=== PATIENT | male | born 2000 | race Two or more races ===

== ENCOUNTER 2024-08-20 14:18 | Emergency (ER) | payer MEDICAID, OTHER ==
[~2024-08-20] VITALS: Ht 182.9 cm; Wt 201.8 kg
--- NOTE | 2024-08-20 15:32 | DVH ---
Bilateral lower extremity venous duplex Clinical History: DVT Comparison: None Technique: Duplex Doppler evaluation of the deep venous systems of both lower extremities from the common femora l veins to the popliteal veins including color Doppler and spectral/pulsed waveform analysis was perf ormed. Findings: RIGHT SIDE: The common femoral vein demonstrates appropriate compressibility and waveform variability. There is compressibility/patency of the great saphenous vein at the proximal thigh. The femoral vein demonstrates appropriate compressibility and waveform variability. The deep femoral vein demonstrates appropriate compressibility and waveform variability. The popliteal vein demonstrates appropriate compressibility and waveform variability. There is normal compressibility at the tibioperoneal trunk. LEFT SIDE: The common femoral vein demonstrates appropriate compressibility and waveform variability. There is compressibility/patency of the great saphenous vein at the proximal thigh. The femoral vein demonstrates appropriate compressibility and waveform variability. The deep femoral vein demonstrates appropriate compressibility and waveform variability. The popliteal vein demonstrates appropriate compressibility and waveform variability. There is normal compressibility at the tibioperoneal trunk. Prominent left groin lymph node measuring 1.3 cm in short axis. Impression: 1. No right or left femoropopliteal venous thrombosis. 2. Left inguinal lymphadenopathy measuring up to 1.3 cm in short axis. HS:Y
[2024-08-20 15:43] VITALS: BP 159/111; PULSE 108; RESP 19; TEMP 98; O2SAT 98
[2024-08-20 15:56] LABS: Basophils # (auto) 0 10 ^3/uL (0-0.2); Basophils % (auto) 0.3 % (0.0-2.0); Eosinophils # (auto) 0.1 10 ^3/uL (0-0.8); Eosinophils % (auto) 1.8 % (0.0-7.0); Hematocrit 38.5 % (41.0-53.0); Hemoglobin 12.4 g/dL (13.5-17.5); Lymphocytes # (auto) 1.6 10 ^3/uL (0.4-5.4); Lymphocytes % (auto) 21.2 % (10.0-50.0); Mean Corpuscular Hemoglobin 28.8 pg (28.0-32.0); Mean Corpuscular Hgb Conc. 32.2 g/dL (32.0-36.0); Mean Corpuscular Volume 89.6 fL (80.0-100.0); Monocytes # (auto) 0.8 10 ^3/uL (0-1.3); Monocytes % (auto) 10.6 % (0.0-12.0); Neutrophils # (auto) 4.9 10 ^3/uL (1.6-8.6); Neutrophils % (auto) 66.1 % (37.0-80.0); Nucleated Red Blood Cells % 0.2 %; Platelet Count (auto) 290 10^3/uL (140-450); Red Blood Cells 4.29 10^6/uL (4.5-5.90); Red Cell Distribution Width 15.3 % (11.8-14.3); White Blood Cell 7.4 10^3/uL (4.4-10.8)
[2024-08-20 16:03] LABS: Urine Bacteria None Seen /hpf (None Seen)
[2024-08-20 16:03] LABS: Chloride 105 mmol/L (98-107); Potassium 4.3 mmol/L (3.5-5.1); Sodium 137 mmol/L (136-145)
[2024-08-20 16:04] LABS: Anion Gap 7 (5-15); Calcium 9.8 mg/dL (8.7-10.4); Carbon Dioxide 25 mmol/L (20-31)
--- NOTE | 2024-08-20 16:06 | DVH ---
XY CHEST TWO VIEWS ROUTINE CLINICAL HISTORY: R/o serious pathology COMPARISON: None TECHNIQUE: Frontal and lateral view of the chest was obtained FINDINGS: Lines and Tubes: None Lungs: No focal consolidation. Pleura: No effusion. No pneumothorax. Cardiomediastinal contours: Unremarkable Bones: No acute osseous abnormality. IMPRESSION: 1. No radiographic evidence of acute cardiopulmonary disease. HS:Y
[2024-08-20 16:09] LABS: BUN/Creatinine Ratio 8.6 (10.0-20.0); Blood Urea Nitrogen 8 mg/dL (9-23); Glucose 108 mg/dL (74-106)
[2024-08-20 16:26] LABS: Urine Blood Negative /uL (Negative); Urine Clarity Clear (Clear); Urine Color Yellow (Yellow); Urine Mucus FEW (None Seen); Urine Protein, UAD TRACE (Negative); Urine Specific Gravity 1.028 (1.001-1.035); Urine Urobilinogen Normal (Negative); Urine WBC 4 /hpf (0 - 3); Urine pH 5.5 (5.0-9.0)
--- NOTE | 2024-08-20 16:47 | ED.PDOC ---
Musculoskeletal HPI Comments Portions of this chart may have been created with an modal fluency direct voice recognition software. Occasional wrong-word or "sound-alike" substitutions may have occurred due to the inherent limitations of voice recognition software. Please read the chart carefully and recognize, using context, where these substitutions have occurred. This is a pleasant 24-year-old gentleman that presents with a chief complaint of left lower swelling. Reports he was sent from his PCP to rule out DVT. The ambulate without assistive devices. Denies fevers chills nausea vomiting diarrhea denies chest pain shortness of breath Wells score : 2+ Chief Complaint: Lower Extremity Time Seen by MD: 14:43 Primary Care Provider: NONE Reviewed Notes: Nurses Notes, Medications, Allergies Allergies: Coded Allergies: NO KNOWN ALLERGIES (Unverified , 08/20/24) Information Source: Patient Mode of Arrival: Ambulatory Past Medical History PAST MEDICAL HISTORY: Denies Surgical History: Denies all surgeries Family History Family History: Reviewed,noncontributory to illness Social History Smoker: Non-Smoker Alcohol: Denies ETOH Use Drugs: Denies Drug Use All Other Systems: Reviewed and Negative (Per HPI) Physical Exam General Appearance: No Apparent Distress, Normal HEENT: Head (Normocephalic atraumatic), Normal ENT Inspection, Pharynx Normal, TMs Normal Neck: Full Range of Motion, Non-Tender, Normal, Normal Inspection Respiratory: Chest Non-Tender, Lungs Clear, No Accessory Muscle Use, No Respiratory Distress, Normal Breath Sounds Cardiovascular: No Edema, No JVD, No Murmur, No Gallop, Normal Peripheral Pulses, Regular Rate/Rhythm Breast Exam: Deferred Gastrointestinal: No Organomegaly, Non Tender, No Pulsatile Mass, Normal Bowel Sounds, Soft Genitalia: Deferred Pelvic: Deferred Rectal: Deferred Extremities: No calf tenderness, Normal capillary refill, Normal inspection, Normal range of motion, Non-tender, No pedal edema Musculoskeletal : Location: Left Extremity Location: Leg (Localized swelling to the calf. No erythema, no warmth to touch, no pain with plantar flexion dorsiflexion. Dorsalis pedis 2+. Cap refill less than 3 seconds) Apperance: Normal Neurologic: Alert, No Motor Deficits, Normal Affect, Normal Mood, No Sensory Deficits Cerebellar Function: Normal Reflexes: Normal Skin: Dry, Normal Color, Warm Lymphatic: No Adenopathy Was a procedure done? Was a procedure done?: No Differential Diagnosis EXT Differential Diagnosis: Fracture, Sprain, Other X-Ray, Labs, Meds, VS Vital Signs Date Time Temp Pulse Resp B/P (MAP) Pulse Ox O2 Delivery O2 Flow Rate FiO2 08/20/24 15:43 98.0 108 19 159/111 (127) 98 98.0 08/20/24 15:41 73 16 96 Room Air 08/20/24 14:42 98.0 106 19 159/111 (127) 98 Lab Test 08/20/24 15:39 08/20/24 14:49 Range/Units White Blood Count 7.4 4.4-10.8 10^3/uL Red Blood Count 4.29 L 4.5-5.90 10^6/uL Hemoglobin 12.4 L 13.5-17.5 g/dL Hematocrit 38.5 L 41.0-53.0 % Mean Corpuscular Volume 89.6 80.0-100.0 fL Mean Corpuscular Hemoglobin 28.8 28.0-32.0 pg Mean Corpuscular Hemoglobin Concent 32.2 32.0-36.0 g/dL Red Cell Distribution Width 15.3 H 11.8-14.3 % Platelet Count 290 140-450 10^3/uL Mean Platelet Volume 7.1 6.9-10.8 fL Neutrophils (%) (Auto) 66.1 37.0-80.0 % Lymphocytes (%) (Auto) 21.2 10.0-50.0 % Monocytes (%) (Auto) 10.6 0.0-12.0 % Eosinophils (%) (Auto) 1.8 0.0-7.0 % Basophils (%) (Auto) 0.3 0.0-2.0 % Neutrophils # (Auto) 4.9 1.6-8.6 10 ^3/uL Lymphocytes # (Auto) 1.6 0.4-5.4 10 ^3/uL Monocytes # (Auto) 0.8 0-1.3 10 ^3/uL Eosinophils # (Auto) 0.1 0-0.8 10 ^3/uL Basophils # (Auto) 0 0-0.2 10 ^3/uL Nucleated Red Blood Cells 0.2 % Sodium Level 137 136-145 mmol/L Potassium Level 4.3 3.5-5.1 mmol/L Chloride Level 105 98-107 mmol/L Carbon Dioxide Level 25 20-31 mmol/L Anion Gap 7 5-15 Blood Urea Nitrogen 8 L 9-23 mg/dL Creatinine 0.93 0.700-1.30 mg/dL Glomerular Filtration Rate Calc 117 >90 mL/min BUN/Creatinine Ratio 8.6 L 10.0-20.0 Serum Glucose 108 H 74-106 mg/dL Calcium Level 9.8 8.7-10.4 mg/dL Urine Color Yellow Yellow Urine Clarity Clear Clear Urine pH 5.5 5.0-9.0 Urine Specific Cut Off 1.028 1.001-1.035 Urine Protein Trace H Negative Urine Ketones Trace Negative Urine Blood Negative Negative /uL Urine Nitrite Negative Negative Urine Bilirubin Negative Negative Urine Urobilinogen Normal Negative mg/dL Urine Leukocyte Esterase Negative Negative /uL Urine RBC 2 0 - 3 /hpf Urine WBC 4 0 - 3 /hpf Urine Squamous Epithelial Cells Few <5 /hpf Urine Bacteria None seen None Seen /hpf Urine Mucus Few None Seen Urine Glucose Normal Normal mg/dL PATIENT: JESSE BERGMAN JRACCT: [id number] UNIT: [id number] : 2000 LOC: ER ROOM / BED: / AGE / SEX: 24 / M ADM STATUS: REG ER SERVICE [id number] ORDERING PHYSICIAN: RENA MARIN NP PROCEDURE(s): BLDVT - BiLat Lower DVT REASON: DVT? ORDER NUMBER(s): [id number], ACCESSION NUMBER(s): [id number] Bilateral lower extremity venous duplex Clinical History: DVT Comparison: None Technique: Duplex Doppler evaluation of the deep venous systems of both lower extremities from the common femoral veins to the popliteal veins including color Doppler and spectral/pulsed waveform analysis was performed. Findings: RIGHT SIDE: The common femoral vein demonstrates appropriate compressibility and waveform variability. There is compressibility/patency of the great saphenous vein at the proximal thigh. The femoral vein demonstrates appropriate compressibility and waveform variability. The deep femoral vein demonstrates appropriate compressibility and waveform variability. The popliteal vein demonstrates appropriate compressibility and waveform variability. There is normal compressibility at the tibioperoneal trunk. LEFT SIDE: The common femoral vein demonstrates appropriate compressibility and waveform variability. There is compressibility/patency of the great saphenous vein at the proximal thigh. The femoral vein demonstrates appropriate compressibility and waveform variability. The deep femoral vein demonstrates appropriate compressibility and waveform variability. The popliteal vein demonstrates appropriate compressibility and waveform variability. There is normal compressibility at the tibioperoneal trunk. Prominent left groin lymph node measuring 1.3 cm in short axis. Impression: 1. No right or left femoropopliteal venous thrombosis. 2. Left inguinal lymphadenopathy measuring up to 1.3 cm in short axis. HS:Y ATED BY: TONE DOMINGUEZ DO DICTATED DATE/TIME: 08/20/241528 SIGNED BY: TONE DOMINGUEZ DO SIGNED DATE/TIME: 08/20/241528 CC: PATIENT: JESSE BERGMAN JRACCT: [id number] UNIT: [id number] : 2000 LOC: ER ROOM / BED: / AGE / SEX: 24 / M ADM STATUS: REG ER SERVICE [id number] ORDERING PHYSICIAN: RENA MARIN NP PROCEDURE(s): CXR2 - CHEST TWO VIEWS ROUTINE REASON: R/o serious pathology ORDER NUMBER(s): [id number], ACCESSION NUMBER(s): [id number] XY CHEST TWO VIEWS ROUTINE CLINICAL HISTORY: R/o serious pathology COMPARISON: None TECHNIQUE: Frontal and lateral view of the chest was obtained FINDINGS: Lines and Tubes: None Lungs: No focal consolidation. Pleura: No effusion. No pneumothorax. Cardiomediastinal contours: Unremarkable Bones: No acute osseous abnormality. IMPRESSION: 1. No radiographic evidence of acute cardiopulmonary disease. HS:Y ATED BY: TONE DOMINGUEZ DO DICTATED DATE/TIME: 08/20/241603 SIGNED BY: TONE DOMINGUEZ DO SIGNED DATE/TIME: 08/20/241603 CC: X-Ray, Labs, Meds, VS Comment Inform patient of their elevated blood pressure Today discussed importance of regular exercise Sodium restriction DASH diet Limit or illuminate alcohol intake Patient verbalized understanding Follow-up with PCP Patient is stable for discharge at this time. External notes reviewed. Test results and diagnostic imaging interpreted. All diagnostic findings, discharge care, education and instructions provided Follow-up with PCP in 2 to 3 days Patient verbalized understanding and agreed to treatment plan Vital signs stable, afebrile, no acute distress noted Patient ambulatory with strong steady gait Advised to return precautions for any new or worsening symptoms, return to ER immediately for re-evaluation Patient is aware that the purpose of this visit was for an acute medical emergency requiring emergent stabilization. Chronic conditions, including malignancies have not been ruled out. Patient is instructed to follow up with PCP as directed and discharge instructions for continued care and workup. If unable to arrange follow-up, patient is to return to the emergency department for reassessment. Patient (parent or legal guardian if applicable) was given verbal and written discharge instructions and acknowledges understanding. Time of 1ST Reevaluation: 16:00 Reevaluation 1ST: Improved Patient Education/Counseling: Diagnosis, Treatment, Prognosis Family Education/Counseling: Diagnosis, Treatment, Prognosis Departure 1 Departure Time of Disposition: 16:46 Impression: Primary Impression: Leg swelling Additional Impression: Elevated blood pressure reading Disposition: 01 HOME / SELF CARE / HOMELESS Condition: Stable Discharged With: Self Critical Care Note Critical Care Time?: No Stability Stability form required: No Heart Score Heart Score: Heart Score Response (Comments) Value History N/A 0 EKG N/A 0 Age N/A 0 Risk Factors N/A 0 Troponin N/A 0 Total 0 RENA MARIN NP Aug 20, 2024 16:47
== END 2024-08-20 16:57 | disposition home or self-care (01) ==
LOC: ER 14:18
DX: M79.89 Other specified soft tissue disorders (principal); R03.0 Elevated blood-pressure reading, without diagnosis of hypertension; R59.0 Localized enlarged lymph nodes
CPT/HCPCS: 36415; 71046; 80048; 81001; 85025; 93970